=== PATIENT | male | born 2000 | race Caucasian/White ===

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

== ENCOUNTER 2018-02-26 17:31 | Observation (INO) | payer OTHER, SELFPAY ==
[~2018-02-26 17:31] MED LIST changes: +Dexamethasone 20 MG/5 ML VIAL ONE; +Glycopyrrolate 0.2 MG/ML 5 ML SYRINGE ONE; -Ondansetron HCl/PF 4 MG/2 ML Vial ONE; +Ondansetron PF 4 MG/2 ML Vial ONE; -diphenhydrAMINE 50 MG/ML VIAL ONE
[2018-02-26] MEDS ORDERED: Adacel (T-DAP) 0.5 ML SYRINGE ONE (17:48)
[2018-02-26] MEDS ORDERED: Lidocaine 1% 20 ML MDV ONE (17:49)
[2018-02-26] MEDS ORDERED: Sodium Chloride 0.9% 100 ML ONE (17:59)
[2018-02-26] MEDS ORDERED: Ondansetron PF 4 MG/2 ML Vial ONE (17:59)
[2018-02-26] MEDS ORDERED: Morphine 4 MG/ML VIAL ONE (17:59)
[2018-02-26] MEDS ORDERED: CEFAZOLIN 1 GM VIAL ONE (17:59)
--- NOTE | 2018-02-26 18:16 | RAD ---
FOUR VIEW RIGHT KNEE: 02/26/18 INDICATION: Injury, pain. FINDINGS: There is a minute density adjacent the lateral femoral condyle with adjacent soft tissue heterogeneit y. There is soft tissue defect of the anterior aspect of the knee and osseous irregularity overlying the anterior aspect of the superior pole of the patella. IMPRESSION: Findings indicating an impaction injury with associated fracture of the anterior and superior aspect of the patella, with associated soft tissue abnormality. POS: [facility]
[2018-02-26 18:36] LABS: #Basophils 0.1 thou/uL (0.0-0.2); #Eosinphils 0.1 thou/uL (0.0-0.7); #Lymphocytes 3.2 thou/uL (1.20-3.40); #Monocytes 0.5 thou/uL (0.11-0.59); #Neutrophils 4.9 thou/uL (1.40-6.50); %Basophils 1.6 % (0.0-1.0); %Eosinophils 1.4 % (0.0-10.0); %Lymphocytes 36.5 % (28.0-48.0); %Monocytes 5.3 % (0.0-4.0); %Neutrophils 55.2 % (31.0-61.0); Hemoglobin 15.1 g/dL (14.0-18.0); Mean Corpuscular HGB CONC 33.8 g/dL (32.0-36.0); Mean Corpuscular Volume 85.8 fL (78.0-98.0); Mean Platelet Volume 7.2 fL (7.4-10.4); Platelet Count 272 thou/uL (130-400); RBC Distribution Width 10.7 % (11.5-14.5); White Blood Cell (WBC) Count 8.8 thou/uL (4.8-10.8)
[2018-02-26 18:49] LABS: ALT (SGPT) 21 U/L (8-55); AST (SGOT) 25 U/L (10-45); Albumin 4.7 g/dL (3.5-5.0); Alkaline Phosphatase 80 U/L (Less than 750); Anion Gap 18 mmol/L (10-20); BUN (Urea Nitrogen) 20 mg/dL (8.4-21.0); Bilirubin, Total 0.4 mg/dL (0.2-1.2); Calc. Creatinine Clearance 0 mL/min (70-130); Calcium 10.1 mg/dL (7.8-10.44); Carbon Dioxide 24 mmol/L (22-29); Chloride 101 mmol/L (98-107); Estimated GFR-MDRD 71; Globulin 3.1 g/dL (2.4-3.5); Glucose 85 mg/dL (70-105); Potassium 3.8 mmol/L (3.5-5.1); Protein, Total 7.8 g/dL (6.0-8.3); Sodium 139 mmol/L (136-145)
[2018-02-26] MEDS ORDERED: Promethazine HCl 25 MG/ML VIAL SLOW IVP PRN (20:06)
[2018-02-26] MEDS ORDERED: Ondansetron HCl/PF 4 MG/2 ML Vial IVP PRN (20:06)
[2018-02-26] MEDS ORDERED: Promethazine HCl 25 MG/ML VIAL IM PRN (20:06)
[2018-02-26] MEDS ORDERED: Fentanyl 100 MCG/2 ML VIAL ONE (20:42)
[2018-02-26] MEDS ORDERED: Milk Of Magnesia 30 ML UDCUP PO PRN (20:59)
[2018-02-26] MEDS ORDERED: Ondansetron PF 4 MG/2 ML Vial IV PRN (20:59)
[2018-02-26] MEDS ORDERED: Acetaminophen 325 MG TAB PO PRN (20:59)
[2018-02-26] MEDS ORDERED: TETANUS AND DIPHTHERIA TOX/PF 0.5 ML DISP.SYRIN IM SCH (21:00)
[2018-02-26] MEDS ORDERED: Communication Order-Pharmacy FS SCH (21:00)
[2018-02-26] MEDS ORDERED: Sodium Chloride 0.9% 30 ML ONE (21:00)
[2018-02-26] MEDS ORDERED: Bupivacaine HCl 0.5%/Epinephrine 1:200,000/PF 30 ml Vial ONE (21:21)
[2018-02-27] MEDS: Ketorolac Tromethamine 30 MG/ML VIAL IVP SCH ×2 (00:10→06:27)
[2018-02-27] MEDS: CEFAZOLIN 2 GM/50 ML BAG IVPB SCH ×2 (01:53→09:32)
--- NOTE | 2018-02-27 03:20 | HP ---
CHIEF COMPLAINT: Right knee laceration. HISTORY OF PRESENT ILLNESS: Mr. Ag is a 17-year-old male who was carrying air compressor out of the back of a truck. This slipped and struck his knee. He cut through his jeans and has lacerated his leg. He had immediate pain. He was unable to ambulate. He had a deep wound. He was taken to [facility] for evaluation. He was found to have a knee laceration into the joint as well as exposed bone and patella fracture. He was transferred over to [facility] for surgery. He is currently comfortable. He has received morphine. He has been stable since arrival. He has a dressing in place. PAST MEDICAL HISTORY: Negative. PAST SURGICAL HISTORY: Right hand surgery for fracture. MEDICATIONS: None. ALLERGIES: NO KNOWN DRUG ALLERGIES. SOCIAL HISTORY: The patient denies tobacco, alcohol, or drug use. REVIEW OF SYSTEMS: Positive for right knee pain. Otherwise, negative 10-point review of systems. FAMILY MEDICAL HISTORY: Noncontributory. PHYSICAL EXAMINATION: VITAL SIGNS: The patient's vital signs are stable. He is normotensive and afebrile. HEENT: Normocephalic, atraumatic. RESPIRATORY: Breathing comfortably. ABDOMEN: Soft, nontender, and nondistended. CARDIOVASCULAR: Pulses are palpable and regular. MUSCULOSKELETAL: The patient's right knee is dressed with Storm bandage and gauze. He is able to flex and extend the foot and ankle. He reports decreased sensation to light touch of the dorsal and plantar aspects of the foot. He is able to wiggle the toes. Two-second capillary refill. Foot is warm and well perfused. He has a large L-shaped laceration of approximately 10 cm over the anterolateral knee that travelled deeply down into the knee joint. There is palpable bone and quadriceps tendon disruption. IMAGING DATA: X-rays are reviewed. These show soft tissue defect, large knee effusion as well as a superior patella impact injury. IMPRESSION: Intra-articular knee laceration with patella injury and quadriceps tendon laceration. PLAN: At this point, the patient will need to go to the operating room for irrigation and debridement of the knee with arthrotomy and exploration. He will likely need quadriceps tendon repair. Goal of surgery is to prevent infection and repair of the quadriceps tendon for normal function. Risks have been reviewed. Risks to include infection, nerve or vascular injury, scarring, pain, and others. He will stay in the hospital for intravenous antibiotics tonight. Job ID: [id number]
--- NOTE | 2018-02-27 04:02 | OP ---
DATE OF PROCEDURE: 02/26/2018 OPERATION: Right knee irrigation and debridement of laceration. PREOPERATIVE DIAGNOSIS: Right knee intra-articular laceration with patella fracture. POSTOPERATIVE DIAGNOSIS: Right knee intra-articular laceration with patella fracture. COMPLICATIONS: None. ESTIMATED BLOOD LOSS: Minimal. ANESTHESIA: General plus local. INDICATIONS: Mr. Doshi is a 17-year-old male who injured his knee. He sustained a deep laceration over the knee, which went into the patella partially avulsing the quadriceps tendon. He was indicated for irrigation and debridement with repair of structures as needed. Risks have been reviewed. He elected to proceed with the operation. DESCRIPTION OF OPERATION: Mr. Doshi was identified in the preop holding area. His correct extremity was marked. He was carried to the operating room. He was positioned supine. General anesthesia was induced. A multidisciplinary time-out was performed. The right lower extremity was prepped and draped in a sterile fashion. We began the procedure with exploration of the wound. The skin edges were trimmed sharply with a knife. We dissected down through the subcutaneous tissues. We followed the laceration. We encountered the patellar fracture. The bony edges were curetted aggressively. We evaluated the quadriceps tendon, which was partially transected, but not fully transected. We thoroughly irrigated with copious lavage using irrigant. We again performed an excisional debridement. We then closed the skin with 3-0 nylon suture in interrupted fashion. A sterile dressing was applied. The patient was taken to the recovery room in good condition without complication at this point. Job ID: [id number]
[2018-02-27 04:06] VITALS: BMI 22.4
[2018-02-27] MEDS ORDERED: Acetaminophen/Codeine 30-300mg Tablet PO PRN (08:02)
[2018-02-27] MEDS ORDERED: Enoxaparin Sodium 40 MG/0.4 ML SYRINGE SC SCH (09:00)
[2018-02-27 11:41] VITALS: BP 104/55; TEMP 98.2
--- NOTE | 2018-03-01 11:24 | DIS ---
DATE OF ADMISSION: 02/26/2018 DATE OF DISCHARGE: 02/27/2018 PREOPERATIVE DIAGNOSES: Right knee intra-articular laceration with patella fracture. POSTOPERATIVE DIAGNOSES: Right knee intra-articular laceration with patella fracture. PROCEDURES PERFORMED: Right knee irrigation and debridement of laceration. BRIEF HOSPITAL COURSE: Mr. Doshi is a 17-year-old male, who injured his knee. He sustained a deep laceration of the knee, which went into the patella partially involving the quadriceps tendon. He was indicated for the above-mentioned procedure with repair of structures as needed. Postoperatively, the patient was admitted to the [facility] floor. He received postoperative antibiotics, analgesia, and worked with Physical Therapy before being discharged. DISCHARGE CONDITION: Stable. DISCHARGE DISPOSITION: Home. DISCHARGE INSTRUCTIONS: The patient will use a knee immobilizer. He will not flex the knee. He will keep this in extension until followup evaluation in 2 weeks. DISCHARGE MEDICATIONS: See MAR. Job ID: [id number]
--- NOTE | 2018-03-08 05:48 | PQF ---
[facility] POST DISCHARGE CLINICAL DOCUMENTATION IMPROVEMENT CLARIFICATION FORM l Todays Date: 03/06/18 l Patients Name LEAH BOSS l l Admit Date 02/26/18 l Disch Date 02/27/18 Stock Patcher Name Princess Serena Bañuelos Email: [email or web address] Cell: [phone] Present Clinical Indicators - Signs / Symptoms Results and Location in Medical Record [ ] Documentation of: [ ] [ ] Documentation of: [ ] [ ] Documentation of: [ ] [ ] Documentation of: [ ] [ ] Risks [ ] [ ] [ ] Treatment [ ] We evaluated the quadriceps tendon, which was partially transected, but not fully transected. We thorougly irrigated with copius lavage using irrigant. We again performed an excisional debridement. Please indicate the total surface of debrided area. [ ] 8 cm laceration was debrided [ ] To be completed by Physician: Alexys Merritt The documentation in this patients record requires clarification to ensure coding compliance and accuracy. Check the appropriate box and include in your discharge summary. [ ] [ ] [ ] [ ] Please check this box if this does not apply to this patient [ ] Unable to determine [ ] Other diagnosis: Review the following information and exercise your independent professional judgment in responding to the clarification. Based upon the clinical findings, risk factors, and treatment, please clarify if you are treating one of the above probable or suspected diagnoses. Physician Signature: Date Time MTDD
== END 2018-02-27 12:10 | disposition home or self-care (01) ==
LOC: SCSER 17:31 → SURG A 19:18 → SDC/OP 19:50 → SURG A 20:59
PROVIDERS: ADMIT Orthopaedic Surgery; ATTEND Orthopaedic Surgery
PROC: 0QBD0ZZ Excision of Right Patella, Open Approach (ICD-10-PCS; principal; 2018-02-26)
DX: S82.001B Unspecified fracture of right patella, initial encounter for open fracture type I or II (principal); S76.191A Other specified injury of right quadriceps muscle, fascia and tendon, initial encounter; Z88.1 Allergy status to other antibiotic agents; Z98.890 Other specified postprocedural states; W20.8XXA Other cause of strike by thrown, projected or falling object, initial encounter
CPT/HCPCS: 36415; 80053; 85025; 86850; 86900; 86901; 90471; 90715; 96365; 96366; 96372; 96375; 96376; G0378; J0670; J0690; J1100; J1650; J1885; J2001; J2270; J2405; J2704; J3010; J3490; J7050

== ENCOUNTER 2018-03-04 18:06 | Emergency (ER) | payer SELFPAY ==
[2018-03-04 19:30] LABS: #Basophils 0.1 thou/uL (0.0-0.2); #Eosinphils 0.4 thou/uL (0.0-0.7); #Monocytes 0.6 thou/uL (0.11-0.59); %Eosinophils 3.7 % (0.0-10.0); %Lymphocytes 26.9 % (28.0-48.0); %Neutrophils 63.4 % (31.0-61.0); Hemoglobin 16.1 g/dL (14.0-18.0); Mean Corpuscular HGB CONC 33.2 g/dL (32.0-36.0); Mean Corpuscular Hemoglobin 29.1 pg (25.0-35.0); Mean Corpuscular Volume 87.5 fL (78.0-98.0); Mean Platelet Volume 6.3 fL (7.4-10.4); Platelet Count 345 thou/uL (130-400); RBC Distribution Width 11.4 % (11.5-14.5); Red Blood Cell (RBC) Count 5.54 mill/uL (4.00-5.20)
[2018-03-04 19:46] LABS: ALT (SGPT) 23 U/L (8-55); AST (SGOT) 20 U/L (10-45); Albumin 4.8 g/dL (3.5-5.0); Alkaline Phosphatase 82 U/L (Less than 750); Anion Gap 16 mmol/L (10-20); BUN (Urea Nitrogen) 19 mg/dL (8.4-21.0); Bilirubin, Total 0.5 mg/dL (0.2-1.2); Calc. Creatinine Clearance 0 mL/min (70-130); Calcium 10.8 mg/dL (7.8-10.44); Carbon Dioxide 28 mmol/L (22-29); Chloride 100 mmol/L (98-107); Estimated GFR-MDRD Greater than 90; Globulin 3.5 g/dL (2.4-3.5); Glucose 88 mg/dL (70-105); Lipase 16 U/L (8-78); Potassium 4.2 mmol/L (3.5-5.1); Protein, Total 8.3 g/dL (6.0-8.3); Sodium 140 mmol/L (136-145)
[2018-03-04] MEDS ORDERED: Ketorolac Tromethamine 30 MG/ML VIAL ONE (19:52)
--- NOTE | 2018-03-04 21:14 | CT ---
CT PULMONARY ANGIOGRAM WITH IV CONTRAST AND 3D MIP RECONSTRUCTIONS 03/04/18 PROVIDED CLINICAL HISTORY: Chest pain. FINDINGS: The heart, pericardium and great vessels demonstrate a normal CT angiographic appearance. There is no evidence for central or segmental pulmonary embolus. The lungs appear clear. No pleural fluid or pne umothorax apparent. The airway appears patent and of normal caliber. The visualized portions of the u pper abdomen appear unremarkable for the phase of contrast in which this study was acquired. The osse ous structures demonstrate no concerning lytic or blastic lesions. IMPRESSION: No evidence for central or segmental pulmonary embolus. POS: [facility]
== END 2018-03-04 20:38 | disposition home or self-care (01) ==
LOC: SCSER 18:06
DX: M94.0 Chondrocostal junction syndrome [Tietze] (principal)
CPT/HCPCS: 71275; 80053; 83690; 85025; 93005; 96361; 96374; J1885